=== PATIENT | female | born 1980 | race Caucasian/White ===

== ENCOUNTER 2024-09-24 08:30 | Emergency (ER) | payer MEDICAID ==
[~2024-09-24] VITALS: Ht 162.6 cm; Wt 100.0 kg
[2024-09-24 08:38] VITALS: TEMP 37; O2SAT 99
[2024-09-24] MEDS: HYDROCODONE/ACETAMINOPHEN 7.5/325MG TABLET PO ONE (11:20)
[2024-09-24 11:21] VITALS: BP 131/87; PULSE 105; RESP 18
[2024-09-24] MEDS: KETOROLAC 15MG/ML VIAL IM ONE (11:21)
== END 2024-09-24 09:12 | disposition home or self-care (01) ==
LOC: ER 08:53
DX: S82.142A Displaced bicondylar fracture of left tibia, initial encounter for closed fracture (principal); W19.XXXA Unspecified fall, initial encounter; Y93.89 Activity, other specified; Y92.89 Other specified places as the place of occurrence of the external cause; Y99.8 Other external cause status
CPT/HCPCS: 82962; 73562; 29505; 96372; 99283; J1885; Z7610 ×3